=== PATIENT | female | born 1990 | race Caucasian/White ===

== ENCOUNTER 2022-07-04 02:08 | Emergency (ER) | payer MEDICAID ==
[~2022-07-04] VITALS: Ht 158 cm; Wt 100.0 kg
[~2022-07-04 02:08] MED LIST: IBUP-1773 PO; MONT-40 PO; RT-ALBUINH IH
--- NOTE | 2022-07-04 03:02 | ED Cough/URI ---
General Chief Complaint: Cough/Cold/Flu Symptoms Stated Complaint: BRONCHITIS;SOB Nursing Triage Note: C/O PRODUCTIVE COUGH, PAIN WITH COUGHING X 18DAYS, LOWER BACK PAIN X5 DAYS. TREATED WITH 5 DAYS STEROIDS WITHOUT IMPROVEMENT. (SOFI HENNING) Source: patient Exam Limitations: no limitations (LEONIE JORGE MD) History of Present Illness Date Seen by Provider: Jul 04, 2022 Time Seen by Provider: 02:45 Initial Comments 32 yo old female with pmhx of bronchitis and asthma presents to the ED for productive coughx2 weeks. Pt says that she has had productive cough and got treated with a 5 day course of steroids without improvement. Pt reports chest pain and tightness, clear nasal drainage, SOB, and low back pain from cough. She has been taking her Albuterol sulfate q4hrs without relief of sx. Pt denies any fever, sinus pressure, throat pain, or ear pain. Pt says she is not vaccinated against covid or influenza. No other complaints. (OSFI HENNING) Allergies and Home Medications Allergies Coded Allergies: No Known Drug Allergies (Unverified , 05/31/17) Patient Home Medication List Home Medication List Reviewed: Yes (SOFI HENNING) Albuterol Sulfate (Proventil Hfa) 6.7 Gm Hfa.aer.ad, 2 PUFF IH Q6H PRN for SHORTNESS OF BREATH, (Reported) Entered as Reported by: BRIAN COATES on 05/31/17 0959 Benzonatate (Benzonatate) 200 Mg Capsule, 200 MG PO TID PRN for COUGH Prescribed by: LEONIE CHRIS on 07/04/22 0436 Hydrocodone/Acetaminophen (Hydrocodone-Acetamin 5-325 mg) 5 Mg-325 Mg Tablet, 1 TAB PO Q4H PRN for PAIN-MODERATE (5-7) Prescribed by: LEONIE CHRIS on 07/04/22 0437 Ibuprofen (Ibuprofen) 600 Mg Tablet, 600 MG PO Q6H PRN for PAIN Prescribed by: CHARITY DOE on 06/02/17 1230 Montelukast Sodium (Montelukast Sodium) 10 Mg Tablet, 10 MG PO DAILY, (Reported) Entered as Reported by: BRIAN COATES on 05/31/17 0959 Prednisone (Prednisone) 20 Mg Tab, 40 MG PO DAILY Prescribed by: LEONIE CHRIS on 07/04/22 0436 Review of Systems Review of Systems Constitutional: chills; No fever; malaise EENTM: see HPI, nose congestion; No ear pain, No throat pain Respiratory: cough, short of breath, wheezing Cardiovascular: chest pain Gastrointestinal: no symptoms reported Genitourinary: no symptoms reported Musculoskeletal: back pain Skin: no symptoms reported Psychiatric/Neurological: No Symptoms Reported Hematologic/Lymphatic: No Symptoms Reported Immunological/Allergic: no symptoms reported (SOFI HENNING) Past Axlwlub-Fdzisj-Znmpje Hx Patient Social History Tobacco Use?: Yes Tobacco type used: Cigarettes Smoking Status: Current Everyday Smoker Substance use?: No Alcohol Use?: No Pt feels they are or have been: No (SOFI HENNING) Immunizations Up To Date First/Initial COVID19 Vaccinat: NONE (SOFI HENNING) Seasonal Allergies Seasonal Allergies: Yes (SOFI HENNING) Past Medical History Surgery/Hospitalization HX: TUBAL, BRONCHITIS, ANXIETY, DEPRESSION Tubal Ligation Asthma Reproductive Disorders: No Female Reproductive Disorders: Ovarian Cyst Sexually Transmitted Disease: No HIV/AIDS: No Loss of Vision: Bilateral Hearing Impairment: Denies Adverse Reaction/Blood Tranf: No (N/A) (SOFI HENNING) Physical Exam Vital Signs - First Documented 07/04/22 04:40 Pulse Ox 95 (LEONIE JORGE MD) Capillary Refill : (SOFI HENNING) Height: 5'2.00" Weight: 175lbs. 0.0oz. 79.309362xg; 40.00 BMI Method: General Appearance: WD/WN, no apparent distress HEENT: PERRL/EOMI, normal ENT inspection, TMs normal, pharynx normal Neck: non-tender, full range of motion, normal inspection Respiratory: chest non-tender, no respiratory distress, no accessory muscle use, wheezing Cardiovascular: regular rate, rhythm, no edema, no gallop, no JVD, no murmur Gastrointestinal: normal bowel sounds, non tender, soft, no organomegaly, no pulsatile mass Extremities: normal range of motion, non-tender, normal inspection, no pedal edema, no calf tenderness Neurologic/Psychiatric: credit review analyst II-XII nml as tested, no motor/sensory deficits, alert, normal mood/affect, oriented x 3 (SOFI HENNING) Progress/Results/Core Measures Suspected Sepsis SIRS Temperature: Pulse: 109 Respiratory Rate: 22 Blood Pressure 162 /103 Mean: 122 (SOFI HENNING) Results/Orders Lab Results Laboratory Tests Test 07/04/22 02:30 Range/Units Influenza Type A (RT-PCR) Not Detected Not Detecte Influenza Type B (RT-PCR) Not Detected Not Detecte SARS-CoV-2 RNA (RT-PCR) Not Detected Not Detecte (LEONIE JORGE MD) My Orders Orders - LEONIE JORGE MD Covid 19 Inhouse Test (07/04/22 02:26) Influenza A And B By Pcr (07/04/22 02:26) Prednisone Tablet (Deltasone Tablet) (07/04/22 04:00) Benzonatate Capsule (Tessalon Perles) (07/04/22 03:55) Chest Pa/Lat (2 View) (07/04/22 03:55) Hydrocodone/Apap 5/325 Tablet (Lortab 5 (07/04/22 04:15) (LEONIE JORGE MD) Medications Given in ED Current Medications Medications Dose Ordered Sig/Kiel Route Start Time Stop Time Status Last Admin Dose Admin Acetaminophen/ Hydrocodone Bitart 1 ea ONCE ONCE PO 07/04/22 04:15 07/04/22 04:16 DC 07/04/22 04:12 1 EA Prednisone 40 mg ONCE ONCE PO 07/04/22 04:00 07/04/22 04:01 DC 07/04/22 04:01 40 MG (LEONIE JORGE MD) Vital Signs/I&O 07/04/22 07/04/22 07/04/22 02:16 02:16 04:40 Temp 36.8 36.3 Pulse 109 90 Resp 22 18 B/P (MAP) 162/103 (122) 127/90 Pulse Ox 95 O2 Delivery Room Air Room Air Room Air (LEONIE JORGE MD) Vital Signs/I&O Capillary Refill : (SOFI HENNING) Blood Pressure Mean: 122 Progress Note : Progress Note Patient has persistent uncontrolled cough as well as wheezing despite finishing a steroid taper and using her nebulizer treatments. Chest x-ray revealed no infiltrates. She was treated with Tessalon Perles and hydrocodone for cough s uppression and for pain. See discharge instructions for further discussion. (LEONIE JORGE MD) Diagnostic Imaging Diagonstic Imaging: Xray Plain Films/CT/US/NM/MRI: chest Comments Chest x-ray viewed by me and report reviewed. See below: NAME: [facility] REC#: [id number] PT STATUS: DEP ER : 1990 PHYSICIAN: LEONIE JORGE MD ADMIT DATE: 07/04/22/ER Draft Date of Exam:07/04/22 CHEST PA/LAT (2 VIEW) INDICATION: Cough, Chest wall pain. TECHNIQUE: Two view chest 4:15 AM CORRELATION STUDY: None FINDINGS: The heart size, mediastinal configuration and pulmonary vasculature are within normal limits. The lungs are clear with no consolidating infiltrate. There is no significant pleural effusion or pneumothorax. Visualized osseous structures are unremarkable. IMPRESSION: 1. Negative for acute abnormality of the chest. Dictated on workstation # [id number] Dict: 07/04/2238 Trans: 07/04/2238 DO [id number] Interpreted by: ANGELINE GARCIA DO (LEONIE JORGE MD) Departure Impression Primary Impression: Acute bronchitis Qualified Codes: J20.9 - Acute bronchitis, unspecified Disposition: 01 HOME, SELF-CARE Condition: Stable Departure-Patient Inst. Decision time for Depature: 04:32 (LEONIE JORGE MD) Referrals: [facility] [place] ([place]/Family) Primary Care Physician Patient Instructions: Bronchitis, Adult ED, Quitting Smoking ED Add. Discharge Instructions: You may take ibuprofen up to 600 mg every 6 hours as needed for primary pain control. You may use hydrocodone as prescribed for backup pain control and cough suppressant. Hydrocodone may make you drowsy so use with caution. It may also cause constipation, so you may wish to use an pjbu-ech-krlutnj stool softener such as Colace while you are on hydrocodone. Continue using your inhaler as prescribed. Complete your steroids as prescribed. It is critically important that you stop smoking completely and as rapidly as possible. If you are unable to quit smoking on your own, please solicit help from your primary care provider. Please contact your primary care provider on Wednesday to arrange a follow-up appointment. Return to the emergency room if you have worsening symptoms despite following these instructions. All discharge instructions reviewed with patient and/or family. Voiced understanding. Scripts Prednisone (Prednisone) 20 Mg Tab 40 MG PO DAILY, #8 TAB 0 Refills Prov: LEONIE JORGE MD 07/04/22 Benzonatate (Benzonatate) 200 Mg Capsule 200 MG PO TID PRN for COUGH, #20 CAP Prov: LEONIE JORGE MD 07/04/22 Hydrocodone/Acetaminophen (Hydrocodone-Acetamin 5-325 mg) 5 Mg-325 Mg Tablet 1 TAB PO Q4H PRN for PAIN-MODERATE (5-7), #10 TAB Prov: LEONIE JORGE MD 07/04/22 Medical Student Attestation and Attending Note: I have personally interviewed and examined this patient along with Sofi Henning MS3. I have reviewed student documentation including history, physical, and assessments. I agree with the documentation except where otherwise noted. Exam: General: Alert, oriented, mild acute distress from uncontrolled coughing, well developed HEENT: Normocephalic and atraumatic Heart: Regular rate and rhythm without murmur Lungs: Mild wheezing bilaterally with uncontrolled cough Abdomen: Soft, nontender, nondistended, normal bowel sounds Neuropsych: Alert, oriented, no focal deficits Skin: Warm and dry without rashes (LEONIE JORGE MD) Copy Copies To 1: [facility]/SOFI ISIDRO Jul 04, 2022 03:01 LEONIE JORGE MD Jul 04, 2022 04:36
[2022-07-04] MEDS ORDERED: BENZONATATE 100 MG (TESSALON) CAPSULE PO STA (03:55)
[2022-07-04] MEDS ORDERED: predniSONE 20 MG TAB PO ONE (04:00)
[2022-07-04] MEDS ORDERED: HYDROcodone/APAP 5 MG/325 MG (LORTAB) TAB PO ONE (04:15)
[2022-07-04] MEDS ORDERED: BENZ200C51 PO (04:36)
[2022-07-04] MEDS ORDERED: ACHD5005 PO (04:36)
[2022-07-04] MEDS ORDERED: PRD20T PO (04:36)
[2022-07-04 04:40] VITALS: BP 127/90
--- NOTE | 2022-07-04 05:38 | Diagnostic Imaging Report ---
INDICATION: Cough, Chest wall pain. TECHNIQUE: Two view chest 4:15 AM CORRELATION STUDY: None FINDINGS: The heart size, mediastinal configuration and pulmonary vasculature are within normal limits. The lungs are clear with no consolidating infiltrate. There is no significant pleural effusion or pneumothorax. Visualized osseous structures are unremarkable. IMPRESSION: 1. Negative for acute abnormality of the chest. Dictated by: Dictated on workstation # [id number]
== END 2022-07-04 04:41 | disposition home or self-care (01) ==
LOC: EDUNIT# 02:08 → ER 02:11
DX: J20.9 Acute bronchitis, unspecified (principal); F17.210 Nicotine dependence, cigarettes, uncomplicated; Z28.310 Unvaccinated for COVID-19; Z20.822 Contact with and (suspected) exposure to COVID-19
CPT/HCPCS: 71046; 87636